=== PATIENT | male | born 1955 | race Caucasian/White ===

== ENCOUNTER → 2025-04-22 | Outpatient (CLI) | payer MEDICARE | LOC: M RAD 08:02 | PROVIDERS: ATTEND Internal Medicine Critical Care Medicine | DX: R91.8 Other nonspecific abnormal finding of lung field (principal) ==

== ENCOUNTER 2025-04-30 07:34 | Day surgery (SDC) | payer MEDICARE ==
[~2025-04-30] VITALS: Ht 185.4 cm; Wt 79.8 kg
[~2025-04-30 07:34] MED LIST: LIDOCAINE 2% 100 MG/5 ML SDV (FOR ANES.) As Ordered ONE; MIDAZOLAM INJ 2 MG/2 ML VIAL As Ordered ONE; ONDANSETRON 4MG/2ML VIAL As Ordered ONE; ROCURONIUM BROMIDE 50MG/5ML VIAL As Ordered ONE; SUGAMMADEX SODIUM 500 MG/5 ML VIAL As Ordered ONE; dexAMETHasone 4 MG/ML 1 ML VIAL As Ordered ONE
[2025-04-30] MEDS ORDERED: LR 1,000 ML IV SCH (07:50)
[2025-04-30] MEDS: ALBUTEROL SULFATE 2.5 MG/0.5 ML INH CONCENTRATE NEB SOLN INH ONE (10:21)
[2025-04-30] MEDS: LIDOCAINE PRES-FREE 2% 10 ML AMP INH ONE (10:22)
[2025-04-30] MEDS ORDERED: ACETAMINOPHEN 1000MG/100ML IV BAG As Ordered ONE (11:01)
[2025-04-30] MEDS: CETACAINE SPRAY 5 GM As Ordered ONE (11:27)
[2025-04-30] MEDS: EPINEPHrine 1 MG/10 ML SYRINGE 1.5IN As Ordered ONE (11:50)
[2025-04-30] MEDS ORDERED: PHENYLephrine 500MCG 5ML (100MCG/ML) SYRINGE As Ordered ONE (12:00)
[2025-04-30] MEDS: LR 1,000 ML IV SCH (12:15)
[2025-04-30] MEDS ORDERED: HYDROMORPHONE HCL 0.5 MG/0.5 ML SYRINGE IV PRN (12:15)
[2025-04-30] MEDS ORDERED: ONDANSETRON 4MG/2ML VIAL IV PRN (12:15)
[2025-04-30 13:11] VITALS: BP 128/73; TEMP 98.2; O2SAT 95
== END 2025-04-30 13:39 | disposition home or self-care (01) ==
LOC: M SDC 07:34
PROVIDERS: ATTEND Internal Medicine Critical Care Medicine
DX: C34.11 Malignant neoplasm of upper lobe, right bronchus or lung (principal); Z87.891 Personal history of nicotine dependence; Z80.1 Family history of malignant neoplasm of trachea, bronchus and lung
CPT/HCPCS: 31625; 31627; 31652; 71045; 76000; 88173; 88305; A4648; C1601; J0131; J0168; J1100; J2250; J2371; J2405; J3010

== ENCOUNTER → 2025-06-03 | Outpatient (CLI) | payer MEDICARE | LOC: M ONCR 09:31 | PROVIDERS: ATTEND General Practice | DX: C34.11 Malignant neoplasm of upper lobe, right bronchus or lung (principal); F17.210 Nicotine dependence, cigarettes, uncomplicated; Z80.1 Family history of malignant neoplasm of trachea, bronchus and lung ==